=== PATIENT | female | born 2000 | race Caucasian/White ===

== ENCOUNTER 2020-03-25 18:20 | Emergency (ER) | payer OTHER ==
[2020-03-25] MEDS ORDERED: fentaNYL 100 MCG/2 ML SDV IM ONE (18:44)
--- NOTE | 2020-03-25 19:13 | EDM.PDOC ---
ED HPI GENERAL MEDICAL PROBLEM - General Chief Complaint: Back Pain or Injury Stated Complaint: THROWN FROM HORSE Time Seen by Provider: 03/25/20 18:45 Source of Information: Reports: Patient, RN History Limitations: Reports: No Limitations - History of Present Illness INITIAL COMMENTS - FREE TEXT/NARRATIVE: 19-year-old female who was riding a horse when the horse turned and she kept going hitting a barn wall and falling to the ground. She had pain in her right flank area when she was on the ground. She was able to stand up and walk but with considerable pain in the right flank area. No loss of consciousness. Breathing was okay. No other injuries reported. No paresthesias. No weakness. Pain however was substantial when she would stand and walk Onset: Today, Sudden Duration: Hour(s): Location: Reports: Chest, Abdomen, Back Quality: Reports: Sharp Severity: Moderate Improves with: Reports: None Worsens with: Reports: None, Movement Associated Symptoms: Reports: No Other Symptoms Left Lower Back Pain Score (Numeric/FACES): 10 - Related Data Allergies Allergy/AdvReac Type Severity Reaction Status Date / Time calamine Allergy Other Verified 03/25/20 18:28 Home Meds: Home Meds NK [No Known Home Meds] 03/25/20 [History] Past Medical History - Past Health History Medical/Surgical History: Denies Medical/Surgical History - Infectious Disease History Infectious Disease History: Reports: None Social & Family History - Tobacco Use Tobacco Use Status *Q: Never Tobacco User ED ROS GENERAL - Review of Systems Review Of Systems: See Below Constitutional: Reports: No Symptoms HEENT: Reports: No Symptoms Respiratory: Reports: No Symptoms Cardiovascular: Reports: No Symptoms Endocrine: Reports: No Symptoms GI/Abdominal: Reports: No Symptoms : Reports: No Symptoms Musculoskeletal: Reports: Other Skin: Reports: No Symptoms (Pain in the right flank primarily) Neurological: Reports: No Symptoms Psychiatric: Reports: No Symptoms ED EXAM,LOWER BACK PAIN/INJURY - Physical Exam Exam: See Below Exam Limited By: No Limitations General Appearance: Alert, WD/WN, Anxious, Moderate Distress Eye Exam: Bilateral Eye: EOMI, PERRL Ears: Normal External Exam Nose: Normal Inspection Throat/Mouth: Normal Inspection Head: Atraumatic, Normocephalic Neck: Normal Inspection, Supple, Non-Tender, Full Range of Motion Respiratory/Chest: No Respiratory Distress, Lungs Clear, Normal Breath Sounds, Chest Non-Tender Cardiovascular: Regular Rate, Rhythm, No Murmur GI/Abdominal: Normal Bowel Sounds, Soft, Non-Tender, No Organomegaly, No Distention, No Mass, Other Back Exam: Other Extremities: Normal Inspection, Normal Range of Motion, Non-Tender Neurological: Alert, Normal Mood/Affect, Normal Dorsiflexion, Normal Plantar Flexion, No Motor/Sensory Deficits, Oriented x 3 Psychiatric: Normal Affect Skin Exam: Warm, Dry, Intact, Normal Color Lymphatic: No Adenopathy Course - Vital Signs Last Recorded V/S: Last Vital Signs Temp 37.1 C 03/25/20 18:31 Pulse 95 03/25/20 18:31 Resp 24 H 03/25/20 18:31 BP 149/85 H 03/25/20 18:31 Pulse Ox 100 03/25/20 18:31 - Orders/Labs/Meds Orders: Active Orders 24 hr Category Date Time Status Abdomen 1V Flat [CR] Stat Exams 03/25/20 18:52 Taken Lumbar Spine 2 or 3V [CR] Stat Exams 03/25/20 18:47 Taken Ribs 2V w Chest Rt [CR] Stat Exams 03/25/20 18:46 Taken Labs: Laboratory Tests 03/25/20 Range/Units 18:45 Urine Color Yellow (YELLOW) Urine Appearance Clear (CLEAR) Urine pH 6.5 (5.0-8.0) Ur Specific [place] >= 1.030 (1.008-1.030) Urine Protein Negative (NEGATIVE) mg/dL Urine Glucose (UA) Negative (NEGATIVE) mg/dL Urine Ketones Negative (NEGATIVE) mg/dL Urine Occult Blood Trace-intact H (NEGATIVE) Urine Nitrite Negative (NEGATIVE) Urine Bilirubin Negative (NEGATIVE) Urine Urobilinogen 0.2 (0.2-1.0) EU/dL Ur Leukocyte Esterase Trace H (NEGATIVE) Urine RBC 0-5 (0-5) Urine WBC 0-5 (0-5) Ur Epithelial Cells Many Amorphous Sediment Few Urine Bacteria Not seen Urine Mucus Few Meds: Medications Discontinued Medications Generic Name Dose Route Start Last Admin Trade Name Freq PRN Reason Stop Dose Admin Fentanyl 100 mcg 03/25/20 18:44 03/25/20 18:50 Sublimaze IM 03/25/20 18:45 100 mcg ONETIME ONE Administration Hydromorphone HCl 1 mg 03/25/20 20:43 03/25/20 20:54 Dilaudid IM 03/25/20 20:44 1 mg ONETIME ONE Administration Departure - Departure Time of Disposition: 21:40 Disposition: Home, Self-Care 01 Condition: Good Clinical Impression: Injury of flank - Discharge Information Instructions: Blunt Abdominal Trauma Referrals: PCP,None [Primary Care Provider] - Forms: ED Department Discharge Sepsis Event Note (ED) - Evaluation Sepsis Screening Result: No Definite Risk - Focused Exam Vital Signs: Vital Signs Temp Pulse Resp BP Pulse Ox 03/25/20 18:31 37.1 C 95 24 H 149/85 H 100 03/25/20 18:30 37.1 C 95 24 H 149/85 H 100 03/25/20 18:29 37.1 C 95 24 H 149/85 H 100 - My Orders Last 24 Hours: My Active Orders 03/25/20 18:46 Ribs 2V w Chest Rt [CR] Stat 03/25/20 18:47 Lumbar Spine 2 or 3V [CR] Stat 03/25/20 18:52 Abdomen 1V Flat [CR] Stat - Assessment/Plan Last 24 Hours: My Active Orders 03/25/20 18:46 Ribs 2V w Chest Rt [CR] Stat 03/25/20 18:47 Lumbar Spine 2 or 3V [CR] Stat 03/25/20 18:52 Abdomen 1V Flat [CR] Stat
[2020-03-25] MEDS ORDERED: HYDROmorphone 1 MG/ML Syringe IM ONE (20:43)
[2020-03-25] MEDS ORDERED: HYDROmorphone 2 MG Tab PO ONE (21:37)
[2020-03-25] MEDS ORDERED: Cyclobenzaprine 10 MG Tab ONE (21:51)
[2020-03-25] MEDS ORDERED: Cyclobenzaprine 10 MG Tab PO ONE (22:04)
--- NOTE | 2020-03-26 09:06 | CR ---
Abdomen 1V Flat CLINICAL HISTORY: Flank pain FINDINGS: Small intestinal configuration is nonacute. There is gas and feces throughout the colon. No abnormal calcifications are identified. Impression: Nonacute intestinal configuration
--- NOTE | 2020-03-26 09:08 | CR ---
Lumbar Spine 2 or 3V CLINICAL HISTORY: Back injury FINDINGS: The vertebral body heights are maintained. Transverse and spinous processes and pedicles appear intact. There is some mild disc space narrowing at L5-S1 IMPRESSION: No acute process Mild disc space narrowing at L5-S1
--- NOTE | 2020-03-26 09:10 | CR ---
Ribs 2V w Chest Rt CLINICAL HISTORY: Trauma, right flank pain FINDINGS: There is no acute fracture within the ribs. No destructive changes are seen. There is no focal pleural thickening or obvious effusion. IMPRESSION: Negative right ribs.
[2020-03-26] MEDS ORDERED: Cyclobenzaprine 10 MG Tab PO SCH (21:00)
== END 2020-03-25 22:07 | disposition home or self-care (01) ==
LOC: EDBD 18:20 → JP.ED 18:20
DX: S39.91XA Unspecified injury of abdomen, initial encounter (principal); Z88.8 Allergy status to other drugs, medicaments and biological substances; V80.010A Animal-rider injured by fall from or being thrown from horse in noncollision accident, initial encounter
CPT/HCPCS: 71101; 72100; 74018; 81001; 96372; 99283; A9270; J1170; J3010

== ENCOUNTER 2020-08-21 07:06 | Emergency (ER) | payer OTHER ==
--- NOTE | 2020-08-21 08:12 | EDM.PDOC ---
ED HPI GENERAL MEDICAL PROBLEM - General Chief Complaint: Gastrointestinal Problem Stated Complaint: VOMITTING/DIAHHREA, ABD PAIN Time Seen by Provider: 08/21/20 07:55 Source of Information: Reports: Patient History Limitations: Reports: No Limitations - History of Present Illness INITIAL COMMENTS - FREE TEXT/NARRATIVE: 20-year-old female was not feeling real well when she went to bed last night, got up at 2:00 and went over to the gas station got some chips and cheese thinking that would help. She got worse over the next hour and for the last 3 and half hours she has had nausea and vomiting and diarrhea with some abdominal cramping. She now looks good, no longer actively vomiting. No fevers or chills, no shortness of breath, mild abdominal cramps but no significant pain. This has "never happened to her before". Onset: Gradual Duration: Hour(s): (Symptoms for the last 8 hours, vomiting and diarrhea for 4) Associated Symptoms: Reports: No Other Symptoms - Related Data Allergies Allergy/AdvReac Type Severity Reaction Status Date / Time calamine Allergy Other Verified 08/21/20 07:52 Home Meds: Home Meds NK [No Known Home Meds] 03/25/20 [History] Past Medical History - Past Health History Medical/Surgical History: Denies Medical/Surgical History Psychiatric History: Reports: Depression - Infectious Disease History Infectious Disease History: Reports: None - Past Surgical History HEENT Surgical History: Reports: Adenoidectomy, Tonsillectomy Social & Family History - Tobacco Use Tobacco Use Status *Q: Never Tobacco User - Caffeine Use Caffeine Use: Reports: None - Recreational Drug Use Recreational Drug Use: No ED ROS GENERAL - Review of Systems Review Of Systems: See Below Constitutional: Denies: Fever, Chills HEENT: Denies: Vision Change Respiratory: Denies: Shortness of Breath Cardiovascular: Reports: No Symptoms. Denies: Chest Pain GI/Abdominal: Reports: Abdominal Pain, Diarrhea, Nausea, Vomiting. Denies: Hematemesis, Hematochezia Musculoskeletal: Reports: No Symptoms Skin: Reports: No Symptoms Neurological: Reports: Headache (Has had some problems with chronic frontal headaches) ED EXAM, GI/ABD - Physical Exam Exam: See Below Exam Limited By: No Limitations General Appearance: Alert, No Apparent Distress Eyes: Bilateral: Normal Appearance Head: Atraumatic Neck: Supple, Non-Tender Respiratory/Chest: Lungs Clear GI/Abdominal Exam: Soft, Other (Bowel sounds are hypoactive, but no significant tenderness to palpation, no guarding or rebound) Neurological: Alert, Oriented Psychiatric: Normal Affect, Normal Mood Skin Exam: Warm, Dry Course - Vital Signs Last Recorded V/S: Last Vital Signs Temp 98.6 F 08/21/20 07:50 Pulse 91 08/21/20 07:50 Resp 20 08/21/20 07:50 BP 134/67 08/21/20 07:50 Pulse Ox 99 08/21/20 07:50 - Re-Assessments/Exams Free Text/Narrative Re-Assessment/Exam: 08/21/20 08:11 This is very unlikely any type of food poisoning, likely just an upset stomach or viral gastroenteritis. She already appears to be improving. She will be discharged with 5 doses of Zofran to use every 6-8 hours, increase diet as tolerated concentrating on liquids initially, and stay home from work today. She can recheck in another 24 to 48 hours if not improving or return anytime if worsening. Departure - Departure Time of Disposition: 08:42 Disposition: Home, Self-Care 01 Clinical Impression: Gastroenteritis - Discharge Information Instructions: Nausea and Vomiting, Adult, [id number] Referrals: Swati Blair PA-C [Primary Care Provider] - Forms: ED Department Discharge Care Plan Goals: Rest today, concentrate on fluids initially and use Zofran under your tongue every 6 hours if needed for nausea or vomiting. Allow the diarrhea to run its course, increase diet and activity as tolerated. Consider rechecking in 24 to 48 hours if not improving satisfactorily. Sepsis Event Note (ED) - Evaluation Sepsis Screening Result: No Definite Risk - Focused Exam Vital Signs: Vital Signs Temp Pulse Resp BP Pulse Ox 08/21/20 07:50 98.6 F 91 20 134/67 99
== END 2020-08-21 08:42 | disposition home or self-care (01) ==
LOC: JP.ED 07:06
DX: K52.9 Noninfective gastroenteritis and colitis, unspecified (principal); Z88.8 Allergy status to other drugs, medicaments and biological substances
CPT/HCPCS: 99283